=== PATIENT | male | born 1975 | race Caucasian/White ===

== ENCOUNTER 2017-10-10 20:08 | Emergency (ER) | payer SELFPAY ==
[~2017-10-10] VITALS: Ht 180.3 cm; Wt 163.6 kg
[2017-10-10 20:11] VITALS: BP 175/91; PULSE 96; RESP 16; TEMP 98.7; O2SAT 98
--- NOTE | 2017-10-10 21:42 | RADRPT ---
EXAM DATE/TIME: 10/10/2017 21:13 [facility] COMPARISON: No previous studies available for comparison. INDICATIONS : Right foot swelling for 1 week. No known injury. MEDICAL HISTORY : None. SURGICAL HISTORY : None. ENCOUNTER: Initial ACUITY: 1 week PAIN SCORE: 4/10 LOCATION: Right foot. FINDINGS: Three view examination of the right foot demonstrates no soft tissue swelling, dislocation, or fractu re. The tarsal bones appear intact. The interphalangeal and metatarsophalangeal joints are intact. The calcaneus is intact. Bony mineralization is normal. CONCLUSION: Unremarkable examination. Marck Santiago MD on October 10, 2017 at 21:40 Board Certified Radiologist. This report was verified electronically.
--- NOTE | 2017-10-11 09:18 | PD ---
Physical Exam Date Seen by Provider: Oct 10, 2017 Time Seen by Provider: 20:15 Narrative 42-year-old male presents to the emergency department for several complaints. He states he just recently moved from [place]. He states he had a door hit him in the right eye 3 days ago. He has reports bilateral hands, legs, feet swelling for 3 days. He also states that he thinks his right foot is fracture due to a colin falling on it 4 days ago. He denies any chest pain or shortness of breath. Data Data Last Documented VS Vital Signs Date Time Temp Pulse Resp B/P (MAP) Pulse Ox O2 Delivery O2 Flow Rate FiO2 10/10/17 20:11 98.7 96 16 175/91 (119) 98 Orders Orders Foot, Complete ([id number]) (10/10/17 ) [facility] Supervised Visit with ABDIEL: No Narrative Course 6-year-old male presents to the emergency department for several complaints. Patient is initially seen in triage and workup is initiated. Patient left AGAINST MEDICAL ADVICE before he could be moved to medical bed. Diagnosis Primary Impression: Left against medical advice Patient Instructions: General Instructions Departure Forms: Tests/Procedures Disposition: 07 AGAINST MEDICAL ADVICE Agnes Chery Oct 11, 2017 09:18
== END 2017-10-11 00:14 | disposition left against medical advice (07) ==
LOC: NED 22:20
DX: Z53.21 Procedure and treatment not carried out due to patient leaving prior to being seen by health care provider (principal)
CPT/HCPCS: 73630; 99283

== ENCOUNTER 2017-10-13 13:00 | Emergency (ER) | payer MEDICAID ==
[~2017-10-13] VITALS: Ht 182.9 cm; Wt 159.0 kg
[2017-10-13 13:03] VITALS: BP 173/86; PULSE 80; RESP 15; TEMP 98.5; O2SAT 96
[2017-10-13] MEDS ORDERED: PROPARACAINE HCL 0.5% OPHT SOLN 15 ML BTL EACH EYE ONE (13:45)
--- NOTE | 2017-10-13 14:31 | PD ---
HPI Chief Complaint: Eye Problems/Injury Time Seen by Provider: 13:38 Travel History International Travel<30 days: No Contact w/Intl Traveler<30days: No Traveled to known affect area: No History of Present Illness HPI This is a 42-year-old male who presents to the emergency department having hit his eye with a cabinet corner 1 week ago presenting with increasing pain and poor vision from the right eye, constant, severe, worsening. He says he has had some clear discharge from the eye. He does not wear contacts. PFSH Past Medical History Medical History: Denies Significant Hx Social History Tobacco Use: No Allergies-Medications (Allergen,Severity, Reaction): Coded Allergies: No Known Allergies (Verified Allergy, Unknown, 10/13/17) Review of Systems General / Constitutional: No: Fever Cardiovascular: No: Chest Pain or Discomfort Respiratory: No: Shortness of Breath Physical Exam Narrative GENERAL: Well-appearing, no acute distress, nontoxic SKIN: Warm and dry. HEAD: Atraumatic. Normocephalic. Eye: Right eye 20/200, left eye 20/20 vision, right eye has a hazy opacity in the upper quadrant of the cornea and diffuse conjunctival injection visualized also on fluorescein exam. Intraocular pressure is 23 in the right eye and 19 in the left eye. ENT: No nasal bleeding or discharge. Moist mucous membranes MUSCULOSKELETAL: No obvious deformities. No clubbing. No cyanosis. No edema. NEUROLOGICAL: Awake and alert. No obvious cranial nerve deficits. Motor grossly within normal limits. Normal speech. PSYCHIATRIC: Appropriate mood and affect; insight and judgment normal. Data Data Last Documented VS Vital Signs Date Time Temp Pulse Resp B/P (MAP) Pulse Ox O2 Delivery O2 Flow Rate FiO2 10/13/17 13:03 98.5 80 15 173/86 (115) 96 Orders Orders Proparacaine 0.5% Opth Soln (Alcaine 0.5 (10/13/17 13:45) MDM Medical Decision Making Medical Screen Exam Complete: Yes Emergency Medical Condition: Yes Differential Diagnosis Corneal abrasion, corneal ulcer, corneal laceration Narrative Course This is a 42-year-old male who presents to the emergency department having had his eye with a cabinet 1 week ago with increasing eye pain and poor vision. On exam he has a haziness over the cornea that to me appears to be an early ulcer. intraocular pressure is normal. He does have poor vision in the right eye. I spoke to Dr. Goff. She recommended multiple hourly antibiotics and follow- up in her clinic on Sunday. Patient will be discharged. Pt was given handwritten script for fortified cefazolin 50 mg/ml every hour and fortified tobramycin 15mg/ml alternating. Diagnosis Primary Impression: Corneal ulcer of right eye Referrals: Alina Goff MD Additional Instructions: If you develop worsening pain or vision return to the emergency department immediately. It is very important that you call Dr. Goff on Sunday at 8 AM for an appointment. Use your eye drops as prescribed. Med/Other Pt SpecificInfo: Prescription(s) given Scripts Doxycycline Hyclate (Doxycycline Hyclate) 100 Mg Cap 100 MG PO BID for Infection, #20 CAP 0 Refills Prov: Leticia Urena MD 10/13/17 Atropine Opth Drops (Atropine Opth Drops) 1% Soln 1 DROP RIGHT EYE BID for Infection, #2 ML 0 Refills Prov: Leticia Urena MD 10/13/17 Disposition: 01 DISCHARGE HOME Condition: Stable Leticia Urena MD Oct 13, 2017 14:31
[2017-10-13] MEDS ORDERED: DOXY100C PO (15:24)
[2017-10-13] MEDS ORDERED: ATRO1SOL11 RIGHT EYE (15:24)
[2017-10-13] MEDS ORDERED: TOBRAMYCIN RIGHT EYE STA (15:50)
[2017-10-13] MEDS ORDERED: CEFAZOLIN OP STA (15:50)
[2017-10-13] MEDS ORDERED: NON-FORMULARY DRUG RIGHT EYE ONE (17:00)
== END 2017-10-13 16:00 | disposition home or self-care (01) ==
LOC: NEPD 13:00
DX: H16.001 Unspecified corneal ulcer, right eye (principal); W22.8XXA Striking against or struck by other objects, initial encounter
CPT/HCPCS: 99283

== ENCOUNTER 2018-01-15 18:30 | Emergency (ER) | payer MEDICAID, OTHER ==
[~2018-01-15] VITALS: Ht 182.9 cm; Wt 148.0 kg
[~2018-01-15 18:30] MED LIST: ATRO1SOL11 RIGHT EYE; DOXY100C PO
[2018-01-15 18:38] VITALS: BP 129/94; PULSE 128; RESP 23; TEMP 98.4; O2SAT 97
--- NOTE | 2018-01-15 18:58 | PD ---
HPI Chief Complaint: Fall Time Seen by Provider: 18:50 Travel History International Travel<30 days: No Contact w/Intl Traveler<30days: No Traveled to known affect area: No History of Present Illness HPI 42-year-old male complains of right elbow pain and low back pain. Patient states that he fell downstairs today. Patient states that it happened about an hour ago. Patient states that he landed on his back on the right elbow. Patient complains sharp pain localized the right elbow and low back area. Patient denies any headache. Patient denies any neck pain. Patient denies any visual change. Patient denies any chest pain or shortness of breath. Patient denies abdominal pain. Patient denies any focal weakness or numbness of the extremity. Patient status post back surgery in 2003. On a scale of 1-10 the pain is a 7. PFSH Past Medical History Depression: Yes Hypertension: Yes Medical other: Yes (rods in back) ?: Not Past Surgical History Appendectomy: Yes Tonsillectomy: Yes (and adenoids) Other Surgery: Yes (rods in back) Social History Alcohol Use: No Tobacco Use: No Substance Use: No Allergies-Medications (Allergen,Severity, Reaction): Coded Allergies: No Known Allergies (Verified Allergy, Unknown, 01/15/18) Reported Meds & Prescriptions Reported Meds & Active Scripts Active Review of Systems General / Constitutional: No: Fever Eyes: No: Visual changes HENT: No: Headaches Cardiovascular: No: Chest Pain or Discomfort Respiratory: No: Shortness of Breath Gastrointestinal: No: Abdominal Pain Genitourinary: No: Dysuria Musculoskeletal: Positive: Pain Skin: No Rash Neurologic: No: Weakness Psychiatric: No: Depression Endocrine: No: Polydipsia Hematologic/Lymphatic: No: Easy Bruising Physical Exam Narrative GENERAL: Well-nourished, well-developed patient. SKIN: Focused skin assessment warm/dry. HEAD: Normocephalic. EYES: No scleral icterus. No injection or drainage. NECK: Supple, trachea midline. No JVD or lymphadenopathy. CARDIOVASCULAR: Regular rate and rhythm without murmurs, gallops, or rubs. RESPIRATORY: Breath sounds equal bilaterally. No accessory muscle use. GASTROINTESTINAL: Abdomen soft, non-tender, nondistended. MUSCULOSKELETAL: No cyanosis, or edema. BACK: Nontender without obvious deformity. No CVA tenderness. Patient has small skin abrasion posterior aspect of the right elbow. Mild soft tissue swelling with moderate tenderness to palpation posterior aspect the right elbow. Full range of motion the right elbow. Neurologic exam normal. Data Data Last Documented VS Vital Signs Date Time Temp Pulse Resp B/P (MAP) Pulse Ox O2 Delivery O2 Flow Rate FiO2 01/15/18 18:44 Room Air 01/15/18 18:38 98.4 128 23 129/94 (106) [address] Lumb Spine W/O Contrast (01/15/18 18:55) Elbow, Complete (4 Vws) (01/15/18 18:55) MDM Medical Decision Making Medical Screen Exam Complete: Yes Emergency Medical Condition: Yes Interpretation(s) Last Impressions Elbow X-Ray 01/15/18 [id number] Signed Impressions: Service Date/Time: Monday, January 15, 2018 18:57 - CONCLUSION: Unremarkable examination of the right elbow. Catracho Graham MD Differential Diagnosis Differential diagnosis including contusion, fracture, dislocation. Narrative Course 42-year-old male complains of right elbow pain and low back pain. Status post fall downstairs. Diagnosis Primary Impression: Contusion of right elbow Qualified Codes: S50.01XA - Contusion of right elbow, initial encounter Additional Impressions: Contusion of lower back Qualified Codes: S30.0XXA - Contusion of lower back and pelvis, initial encounter Abrasion of right elbow Qualified Codes: S50.311A - Abrasion of right elbow, initial encounter Patient Instructions: General Instructions Additional Instructions: Take medication as needed for pain. Follow-up with orthopedist. Polysporin ointment with Band-Aid to the elbow. Med/Other Pt SpecificInfo: Prescription(s) given Scripts Methocarbamol (Robaxin) 750 Mg Tab 750 MG PO QID for Muscle Spasm, #40 TAB 0 Refills Prov: Trent Agustin MD 01/15/18 Ibuprofen (Ibuprofen) 600 Mg Tab 600 MG PO TID for Pain, #60 TAB 0 Refills Prov: Trent Agustin MD 01/15/18 Disposition: 01 DISCHARGE HOME Condition: Stable Trent Agustin MD January 15, 2018 18:58
--- NOTE | 2018-01-15 19:18 | RADRPT ---
EXAM DATE/TIME: 01/15/2018 18:57 [facility] COMPARISON: No previous studies available for comparison. INDICATIONS : Fall, elbow pain right elbow. MEDICAL HISTORY : None. SURGICAL HISTORY : None. ENCOUNTER: Initial ACUITY: 1 day PAIN SCORE: 5/10 LOCATION: Right elbow FINDINGS: Multiple view examination of the right elbow demonstrates no soft tissue swelling, joint effusion, or fracture. The osseous structures are in normal alignment. Bony mineralization is normal. CONCLUSION: Unremarkable examination of the right elbow. Catracho Graham MD on January 15, 2018 at 19:13 Board Certified Radiologist. This report was verified electronically.
--- NOTE | 2018-01-15 19:37 | RADRPT ---
EXAM DATE/TIME: 01/15/2018 19:13 [facility] COMPARISON: No previous studies available for comparison. INDICATIONS : Trauma; fall. RADIATION DOSE: 37.81 CTDIvol (mGy) MEDICAL HISTORY : Hypertension. SURGICAL HISTORY : Appendectomy. Lumbar ENCOUNTER: Initial ACUITY: 1 day PAIN SCALE: 5/10 LOCATION: Bilateral lumbar TECHNIQUE: Volumetric scanning of the lumbar spine was performed. Multiplanar reconstructions in the sagittal, coronal and oblique axial planes were performed. Using automated exposure control and adjustment of the mA and/or kV according to patient size, radiation dose was kept as low as reasonably achievable t o obtain optimal diagnostic quality images. DICOM format image data is available electronically for review and comparison. FINDINGS: There has been previous posterior hardware fusion at the lumbosacral junction. There is slight virgen listhesis of L5 relative to S1 at the fused location. Alignment is otherwise normal. There is no evid ence of fracture or destructive change. There is no evidence of bony canal or foraminal compromise. T here is no evidence of paraspinal mass or hematoma. CONCLUSION: No acute bony findings of the lumbar spine Catracho Graham MD on January 15, 2018 at 19:31 Board Certified Radiologist. This report was verified electronically.
[2018-01-15] MEDS ORDERED: IBUP-232 PO (19:47)
[2018-01-15] MEDS ORDERED: ROBA750T PO (19:47)
== END 2018-01-15 20:19 | disposition home or self-care (01) ==
LOC: NEPD 18:30
DX: S50.01XA Contusion of right elbow, initial encounter (principal); S30.0XXA Contusion of lower back and pelvis, initial encounter; S50.311A Abrasion of right elbow, initial encounter; W10.9XXA Fall (on) (from) unspecified stairs and steps, initial encounter
CPT/HCPCS: 72131; 73080; 99283